=== PATIENT | female | born 1970 | race Caucasian/White ===

== ENCOUNTER 2016-11-22 10:44 | Outpatient (CLI) ==
[2016-11-22 10:57] LABS: BASOPHILS % (AUTO) 0.2 % (0.0-3.0); EOSINOPHILS # (AUTO) 0.2 K/ul (0.0-0.7); EOSINOPHILS % (AUTO) 3.8 % (0.0-7.0); HEMATOCRIT 30.6 % (37.0-47.0); HEMOGLOBIN 9.2 g/dl (12.0-16.0); IMMATURE GRANULOCYTE % (AUTO) 0.2 % (0.0-5.0); LYMPHOCYTES # (AUTO) 0.7 K/uL (0.60-3.4); LYMPHOCYTES % (AUTO) 16.1 (10.0-50.0); MEAN CORPUSCULAR HEMOGLOBIN 25.1 pg (27.0-31.0); MEAN CORPUSCULAR HGB CONC 30.1 (31.8-35.4); MEAN CORPUSCULAR VOLUME 83.4 fl (81.0-99.0); MONOCYTES # (AUTO) 0.3 K/uL (0.4-2.0); NEUTROPHILS # (AUTO) 3.1 K/ul (2.0-6.9); NEUTROPHILS % (AUTO) 73.7; PLATELET COUNT 228 10^3/uL (140-440); RED BLOOD COUNT 3.67 10^6/ul (4.20-5.40); WHITE BLOOD COUNT 4.17 K/ul (4.6-10.2)
[2016-11-22 11:24] LABS: ALBUMIN 2.7 g/dL (3.4-5.0); ALBUMIN/GLOBULIN RATIO 0.66; ANION GAP 14.1; BILIRUBIN,TOTAL 0.44 mg/dL (0.00-1.20); BUN/CREATININE RATIO 10.44; CALCIUM 8.5 mg/dL (8.2-10.2); CREATININE 0.67 mg/dL (0.60-1.30); POTASSIUM 4.1 mmol/L (3.5-5.10); TOTAL PROTEIN 6.8 g/dL (6.4-8.2)
[2016-11-22 11:28] LABS: ERYTHROCYTE SEDIMENTATION RATE 85 mm/hr (0-20); ESR INTERNAL QC INTERNAL QC VALID
== END 2016-11-22 10:45 | disposition home or self-care (01) ==
LOC: NONPT 10:44
PROVIDERS: ATTEND Internal Medicine Infectious Disease
DX: M00.9 Pyogenic arthritis, unspecified (principal)
CPT/HCPCS: 80053; 80202; 85025; 85651; 86140

== ENCOUNTER 2016-12-06 10:30 | Outpatient (CLI) ==
[2016-12-06 10:59] LABS: BASOPHILS % (AUTO) 0.4 % (0.0-3.0); EOSINOPHILS # (AUTO) 0.3 K/ul (0.0-0.7); EOSINOPHILS % (AUTO) 5.2 % (0.0-7.0); HEMATOCRIT 32.5 % (37.0-47.0); HEMOGLOBIN 9.5 g/dl (12.0-16.0); IMMATURE GRANULOCYTE % (AUTO) 0.4 % (0.0-5.0); LYMPHOCYTES # (AUTO) 1.5 K/uL (0.60-3.4); LYMPHOCYTES % (AUTO) 25.9 (10.0-50.0); MEAN CORPUSCULAR HGB CONC 29.2 (31.8-35.4); MEAN CORPUSCULAR VOLUME 82.1 fl (81.0-99.0); MONOCYTES # (AUTO) 0.4 K/uL (0.4-2.0); MONOCYTES % (AUTO) 7.1 (0-10); NEUTROPHILS # (AUTO) 3.4 K/ul (2.0-6.9); PLATELET COUNT 286 10^3/uL (140-440); RED BLOOD COUNT 3.96 10^6/ul (4.20-5.40); WHITE BLOOD COUNT 5.63 K/ul (4.6-10.2)
[2016-12-06 11:36] LABS: ESR INTERNAL QC INTERNAL QC VALID
[2016-12-06 11:37] LABS: ERYTHROCYTE SEDIMENTATION RATE 63 mm/hr (0-20)
[2016-12-06 12:17] LABS: ALBUMIN/GLOBULIN RATIO 0.71; ANION GAP 12.8; BILIRUBIN,TOTAL 0.32 mg/dL (0.00-1.20); BUN/CREATININE RATIO 13.58; CALCIUM 8.9 mg/dL (8.2-10.2); CREATININE 0.81 mg/dL (0.60-1.30); POTASSIUM 4.8 mmol/L (3.5-5.10); TOTAL PROTEIN 7.2 g/dL (6.4-8.2)
== END 2016-12-06 10:31 | disposition home or self-care (01) ==
LOC: NONPT 10:30
PROVIDERS: ATTEND Internal Medicine Infectious Disease
DX: L03.115 Cellulitis of right lower limb (principal); B95.61 Methicillin susceptible Staphylococcus aureus infection as the cause of diseases classified elsewhere
CPT/HCPCS: 80053; 80202; 85025; 85651; 86140

== ENCOUNTER 2017-02-04 11:12 | Outpatient (CLI) ==
--- NOTE | 2017-02-04 13:07 | DI ---
EXAM: Two views of the left lower extremity HISTORY: Pain in left leg. COMPARISON: Same day left knee and femur x-rays FINDINGS: The left tibia and fibula demonstrate no cortical irregularity or displaced fracture. The re is no abnormal periosteal reaction. There is no lytic or blastic lesion identified. Limited vie w of the left knee is better evaluated on same date dedicated left knee x-rays. The soft tissues ar e unremarkable. Limited views of the left ankle are unremarkable. IMPRESSION: No acute abnormality or displaced fracture of the left tibia or fibula.
--- NOTE | 2017-02-04 13:07 | DI ---
EXAM: Radiographs, left knee HISTORY: Left leg pain. COMPARISON: None available. TECHNIQUE: Four views. FINDINGS: Bone mineralization is decreased. There is no fracture or dislocation. Mild tricompartm ental joint space narrowing marginal osteophyte formation noted. No erosive changes are seen. No f ocal soft tissue abnormality is seen. IMPRESSION: Mild tricompartmental osteoarthritis.
--- NOTE | 2017-02-04 13:11 | DI ---
Examination: Four radiographic images of the left femur. Comparison: Left knee radiographs performed on the same day. Reason for study: Pain in leg. FINDINGS: No acute fracture or malalignment. The cortex is intact. No unexplained radiopaque soft tissue densities are retained foreign bodies. Surgical clips are seen overlying the left elsi pelv is. Impression: No acute fracture or malalignment in the left femur.
== END 2017-02-04 11:13 | disposition home or self-care (01) ==
LOC: RAD 11:12
PROVIDERS: ATTEND Physician Assistant Medical
DX: M79.605 Pain in left leg (principal)

== ENCOUNTER 2017-10-04 13:53 | Outpatient (CLI) | END 2017-10-04 13:54 | disposition home or self-care (01) | LOC: RAD 13:53 | PROVIDERS: ATTEND Physician Assistant Medical | DX: Z12.31 Encounter for screening mammogram for malignant neoplasm of breast (principal) | CPT/HCPCS: 77067 ==

== ENCOUNTER 2018-04-28 08:22 | Outpatient (CLI) ==
--- NOTE | 2018-04-28 12:12 | CT ---
EXAM: CTA of the chest with and without contrast. History: Dyspnea. Comparison: Chest radiograph 12/02/2015 Technique: Multiplanar CT images through the thorax were obtained following administration of IV con trast. MIP images and 3-D reconstructions were also acquired. Noncontrast images were also acquired. Findings: Heart size is upper limits of normal. No pericardial effusion. No thoracic aortic aneury sm. No thoracic aortic dissection. No pulmonary arterial filling defects identified to the level of the proximal segmental branches. The more distal pulmonary arteries are not well opacified with con trast material. No pathologically enlarged thoracic lymph nodes. Subcutaneous edema seen involving t he right lateral chest wall. No consolidated pneumonia. No pleural fluid and no pneumothorax. No suspicious lung masses or lung nodules. Within the visualized upper abdomen, postsurgical changes of the stomach. The liver is fatty. No ac marcos osseous abnormalities. Impression: 1. No acute intrathoracic process. 2. No pulmonary embolism and normal thoracic aorta. 3. Subcutaneous edema involving the right lateral chest wall. 4. Hepatic steatosis
== END 2018-04-28 08:23 | disposition home or self-care (01) ==
LOC: RAD 08:22
PROVIDERS: ATTEND Physician Assistant Medical
DX: R06.02 Shortness of breath (principal)
CPT/HCPCS: 36415; 82565

== ENCOUNTER 2018-05-04 08:47 | Outpatient (CLI) | END 2018-05-04 08:48 | disposition home or self-care (01) | LOC: CAR 08:47 | PROVIDERS: ATTEND Physician Assistant Medical | DX: R06.02 Shortness of breath (principal) ==

== ENCOUNTER 2018-05-31 13:00 | Outpatient (CLI) ==
--- NOTE | 2018-05-31 13:53 | US ---
EXAM: Right lower extremity venous Doppler History: Right lower extremity pain. Technique: Multiple sonographic images through the right lower extremity were obtained. Color duple x Doppler was used to interrogate vascular flow. Findings: The right common femoral, greater saphenous, profunda, superficial femoral, popliteal, and peroneal veins demonstrate spontaneous flow with normal compression and normal augmentation. The ri ght posterior tibial and anterior tibial veins were not visualized due to body habitus. Impression: No sonographic evidence for deep venous thrombosis.
== END 2018-05-31 13:01 | disposition home or self-care (01) ==
LOC: RAD 13:00
PROVIDERS: ATTEND Physician Assistant Medical
DX: M79.604 Pain in right leg (principal)

== ENCOUNTER 2019-01-01 12:10 | Outpatient (CLI) ==
--- NOTE | 2019-01-01 13:26 | US ---
EXAM: Left lower extremity venous Doppler History: Left knee pain. Technique: Multiple sonographic images through the left lower extremity were obtained. Color duplex Doppler was used to interrogate vascular flow. Findings: The left common femoral, greater saphenous, profunda, superficial femoral, popliteal, kathy ke, posterior tibial and anterior tibial veins demonstrate spontaneous flow with normal compression and normal augmentation. Impression: No sonographic evidence for deep venous thrombosis
== END 2019-01-01 12:11 | disposition home or self-care (01) ==
LOC: RAD 12:10
PROVIDERS: ATTEND Orthopaedic Surgery
DX: M25.562 Pain in left knee (principal); R60.1 Generalized edema; Z96.652 Presence of left artificial knee joint

== ENCOUNTER 2019-03-14 14:39 | Outpatient (CLI) ==
--- NOTE | 2019-03-15 08:31 | DI ---
EXAM: Two views of the chest. History: Cough. Comparison: Chest radiograph 12/02/2015 Findings: Heart size is normal. No focal consolidation. No appreciable pleural fluid and no pneumo thorax. No acute osseous abnormalities. Impression: No acute cardiopulmonary process
== END 2019-03-14 14:40 | disposition home or self-care (01) ==
LOC: RAD 14:39
PROVIDERS: ATTEND Physician Assistant
DX: R05 Cough (principal)

== ENCOUNTER 2019-03-28 10:32 | Outpatient (POV) | END 2019-03-28 17:00 | LOC: OUTPT 10:32 | PROVIDERS: ATTEND Otolaryngology | DX: H91.90 Unspecified hearing loss, unspecified ear (principal) | CPT/HCPCS: 92557; 92567 ==

== ENCOUNTER 2019-07-09 13:40 | Outpatient (CLI) ==
--- NOTE | 2019-07-09 15:00 | CT ---
EXAM: CT of the abdomen pelvis without contrast History: Right lower quadrant abdominal pain. Technique: Multiplanar CT images through the abdomen pelvis were obtained without the administration of IV contrast Findings: Lung bases are clear. No acute osseous abnormalities. Degenerative changes of the spine. Hardware seen within the proximal right femur. Status post cholecystectomy. Postsurgical changes of the stomach. No renal stones and no hydronephr osis. Small cyst within the inferior pole of the right kidney. Adrenal glands are unremarkable. No peripancreatic inflammation. Ventral hernia containing a loop of transverse colon and fat. No corina l obstruction. No bladder wall thickening. No perirectal inflammation. Status post hysterectomy. No free air and no ascites. Postsurgical changes of the small bowel. Limited evaluation without IV contrast Impression: 1. No acute intra-abdominal or pelvic process. 2. Ventral hernia containing a loop of transverse colon and fat. There is no bowel obstruction
== END 2019-07-09 13:41 | disposition home or self-care (01) ==
LOC: RAD 13:40
PROVIDERS: ATTEND Physician Assistant
DX: R10.31 Right lower quadrant pain (principal)